=== PATIENT | male | born 1950 | race Caucasian/White ===

== ENCOUNTER 2018-12-05 15:06 | Emergency (ER) | payer MEDICARE ==
[~2018-12-05] VITALS: Ht 170.2 cm; Wt 138.0 kg
[~2018-12-05 15:06] MED LIST: ASPI-481 PO; COLC25PO2 MC; DOCU-144 PO; ESOM5SUS PO; LEVE750T70 PO; METO-53 PO; NITR0.4T39 SL; RANEXA; RSV10T PO; SPIR50TA4 PO; TERA10CA3 PO; [UNRECOGNIZED DRUG - CODE] MC; [UNRECOGNIZED DRUG - CODE] MC
[2018-12-05 15:19] VITALS: Ht 170.2 cm; Wt 138.0 kg
[2018-12-05] MEDS ORDERED: LORAZEPAM 2 MG INJ IV STA (15:33)
[2018-12-05] MEDS ORDERED: LABETALOL HCL 20MG INJ IV ONE (16:00)
[2018-12-05 18:03] VITALS: BP 140/80; PULSE 62; RESP 16
--- NOTE | 2018-12-05 18:57 | ERD ---
ER Documentation Chief Complaint Chief Complaint 'seizures' at 2100, 1400. no LOC, 'couldn't control self'. no meds. HPI Patient is a 68-year-old male with coronary disease and hypertension who presents with symptoms of possible seizure. The patient said that at 9 PM last night he was shaking and twitching but was awake for the entire event. He was unable to control it however. It lasted less than 10 minutes. Around 2 PM toda y a similar episode happened. He did bite his tongue. He was unable to speak at that time. He said that both episodes happened while he was trying to do something with his mouth. He said that 2 years ago he had a similar symptom while in the [facility]. Upon review of old medical records this is the patient's first visit to the emergency department. He does not currently have a primary doctor. ROS All systems reviewed and are negative except as per history of present illness. Medications Home Meds Discontinued Reported Medications Sucralfate (Sucralfate) 1,000 Gm Powder, 1 GM MC DAILY 06/17/13 Rosuvastatin Calcium* (Crestor*) 10 Mg Tablet, 10 MG PO DAILY 06/17/13 Terazosin Hcl* (Terazosin Hcl*) 10 Mg Capsule, 5 MG PO DAILY 06/17/13 Metoprolol (Lopressor) 50 Mg Tablet, 50 MG PO BID 06/17/13 [Ranexa] No Conflict Check, 1000 MG BID 06/17/13 Potassium Citrate Monohydrate (Potassium Citrate) 454 Gm Granules, 99 GM MC PRN for GASTROINTESTINAL UPSET 06/17/13 Colchicine (Colchicine) 5 Gm Powder, 0.6 GM MC PRN for NOTE 06/17/13 Nitroglycerin* (Nitrostat*) 0.4 Mg Tab.subl, 0.4 MG SL PRN for ANGINA 06/17/13 Docusate Sodium* (Colace*) 100 Mg Capsule, 100 MG PO DAILY 04/17/13 Spironolactone* (Aldactone*) 50 Mg Tablet, 100 MG PO 04/17/13 Esomeprazole Mag Trihydrate (Nexium Packet) 5 Mg Suspdr.pkt, 40 MG PO DAILY 04/17/13 Aspirin (Baby Aspirin) 81 Mg Tab.chew, 81 MG PO DAILY 04/17/13 Allergies Allergies: Coded Allergies: No Known Allergy (Unverified , 12/05/18) PMhx/Soc History of Surgery: Yes (ANGIOPLASTY X3, HERNIA, BARIATRIC, HYDROCELECTOMY, B CATARACT) Anesthesia Reaction: No Hx Neurological Disorder: No Hx Respiratory Disorders: No Hx Cardiac Disorders: Yes (CAD, [place], PCI,ANGINA, CHF,) Hx Psychiatric Problems: No Hx Miscellaneous Medical Probl: Yes (GOUT, CHRONIC VENOUS STASIS, LE EDEMA) Hx Alcohol Use: No Hx Substance Use: No Hx Tobacco Use: No Smoking Status: Never smoker FmHx Family History: diabetes Physical Exam Vitals Vital Signs Date Temp Pulse Resp B/P (MAP) Pulse Ox O2 O2 Flow FiO2 Time Delivery Rate 12/05/18 98.3 62 16 140/80 100 Room Air 18:03 (100) 12/05/18 64 16 158/72 99 Room Air 15:59 (100) 12/05/18 76 20 180/96 98 Room Air 15:30 (124) 12/05/18 99.2 69 16 212/111 97 15:19 (144) Physical Exam Const: No acute distress Head: Atraumatic Eyes: Normal Conjunctiva ENT: Normal External Ears, Nose and Mouth. Neck: Full range of motion. No meningismus. Resp: Clear to auscultation bilaterally Cardio: Regular rate and rhythm, no murmurs Abd: Soft, non tender, non distended. Normal bowel sounds Skin: No petechiae or rashes Back: No midline or flank tenderness Ext: No cyanosis, or edema Neur: Awake and alert, cranial nerves II through XII intact, strength is 5 out of 5 in all 4 extremities, no slurred speech, no seizure activity Psych: Normal Mood and Affect Result Diagram: 12/05/18 1558 12/05/18 1558 Results 24 hrs Laboratory Tests Test 12/05/18 15:58 White Blood Count 7.7 10^3/ul Red Blood Count 4.85 10^6/ul Hemoglobin 13.0 g/dl Hematocrit 42.3 % Mean Corpuscular Volume 87.2 fl Mean Corpuscular Hemoglobin 26.8 pg Mean Corpuscular Hemoglobin Concent 30.7 g/dl Red Cell Distribution Width 15.7 % Platelet Count 256 10^3/UL Mean Platelet Volume 10.4 fl Immature Granulocytes % 0.300 % Neutrophils % 81.4 % Lymphocytes % 11.0 % Monocytes % 6.2 % Eosinophils % 0.8 % Basophils % 0.3 % Nucleated Red Blood Cells % 0.0 /100WBC Immature Granulocytes # 0.020 10^3/ul Neutrophils # 6.3 10^3/ul Lymphocytes # 0.9 10^3/ul Monocytes # 0.5 10^3/ul Eosinophils # 0.1 10^3/ul Basophils # 0.0 10^3/ul Nucleated Red Blood Cells # 0.0 10^3/ul Sodium Level 140 mmol/L Potassium Level 5.3 mmol/L Chloride Level 108 mmol/L Carbon Dioxide Level 27 mmol/L Anion Gap 5 Blood Urea Nitrogen 18 mg/dl Creatinine 1.21 mg/dl Est Glomerular Filtrat Rate mL/min 60 mL/min Glucose Level 74 mg/dl Calcium Level 9.0 mg/dl Troponin I 0.017 ng/ml Current Medications Medications Dose Sig/Deisi Start Time Status Last (Trade) Ordered Route PRN Stop Time Admin Dose Reason Admin Lorazepam 1 mg ONCE STAT 12/05/18 DC 12/05/18 (Ativan) IV 15:33 12/05/18 16:06 15:34 Labetalol 20 mg ONCE ONCE 12/05/18 DC HCl IV 16:00 12/05/18 (Labetalol) 16:01 Procedures/MDM CT brain read by radiology. Patient is a 68-year-old female who presents with what sounds like complex partial seizure. Laboratory studies were basically normal and CT scan of the brain shows no sign of mass or bleed. At this point I do not believe patient requires admission to the hospital but he will need close outpatient follow-up and likely MRI and EEG as an outpatient. The patient can return for any worsening symptoms. He was given Ativan in the emergency department to prevent further seizure. He will need to follow-up closely with the local clinics and I will give him a list so he can obtain a primary doctor. He will also likely benefit from outpatient neurology follow-up. Departure Diagnosis: Primary Impression: Complex partial seizure Epilepsy type: partial symptomatic Intractability: not intractable Status epilepticus: without status epilepticus Qualified Codes: G40.209 - Localization-related (focal) (partial) symptomatic epilepsy and epileptic syndromes with complex partial seizures, not intractable, without status epilepticus Condition: Fair Patient Instructions: Seizure, New Onset, Unk Cause [Adult] Referrals: COMMUNITY CLINICS YOU HAVE RECEIVED A MEDICAL SCREENING EXAM AND THE RESULTS INDICATE THAT YOU DO NOT HAVE A CONDITION THAT REQUIRES URGENT TREATMENT IN THE EMERGENCY DEPARTMENT. FURTHER EVALUATION AND TREATMENT OF YOUR CONDITION CAN WAIT UNTIL YOU ARE SEEN IN YOUR DOCTORS OFFICE WITHIN THE NEXT 1-2 DAYS. IT IS YOUR RESPONSIBILITY TO MAKE AN APPOINTMENT FOR FOLOW-UP CARE. IF YOU HAVE A PRIMARY DOCTOR --you should call your primary doctor and schedule an appointment IF YOU DO NOT HAVE A PRIMARY DOCTOR YOU CAN CALL OUR PHYSICIAN REFERRAL HOTLINE AT IF YOU CAN NOT AFFORD TO SEE A PHYSICIAN YOU CAN CHOSE FROM THE FOLLOWING [facility] CLINICS [facility] [address] [facility]. [facility] [address] [facility] [facility] [address] [facility] [facility] [address] [facility]. [facility] [address] [facility]. [facility] [address] Additional Instructions: Call your primary care doctor TOMORROW for an appointment during the next 1-2 days.See the doctor sooner or return here if your condition worsens before your appointment time. ALEXANDRE WALKER MD Dec 05, 2018 18:57
== END 2018-12-05 18:11 | disposition home or self-care (01) ==
LOC: E/R 15:06
DX: G40.209 Localization-related (focal) (partial) symptomatic epilepsy and epileptic syndromes with complex partial seizures, not intractable, without status epilepticus (principal); I25.10 Atherosclerotic heart disease of native coronary artery without angina pectoris; I11.0 Hypertensive heart disease with heart failure; I50.9 Heart failure, unspecified; I25.2 Old myocardial infarction; Z79.82 Long term (current) use of aspirin
CPT/HCPCS: 36415; 70450; 80048; 84484; 85025; 93005; 96374; 99285; J2060

== ENCOUNTER 2018-12-09 21:01 | Emergency (ER) | payer MEDICARE ==
[~2018-12-09] VITALS: Ht 170.2 cm; Wt 130.0 kg
[~2018-12-09 21:01] MED LIST changes: -ASPI-481 PO; -COLC25PO2 MC; -DOCU-144 PO; -ESOM5SUS PO; -METO-53 PO; -NITR0.4T39 SL; -RANEXA; -RSV10T PO; -SPIR50TA4 PO; -TERA10CA3 PO; -[UNRECOGNIZED DRUG - CODE] MC; -[UNRECOGNIZED DRUG - CODE] MC
[2018-12-09 21:07] VITALS: Ht 170.2 cm; Wt 130.0 kg
[2018-12-09] MEDS ORDERED: LEVETIRACETAM 500 MG TAB PO ONE (21:30)
--- NOTE | 2018-12-09 22:16 | ERD ---
ER Documentation Chief Complaint Chief Complaint STATES HAD SX X3 TODAY; LAST SX @2014; NOT POSTICTAL HPI This is a 68-year-old man complaining of his third seizure in the last 5 days, he was seen and evaluated few days ago and a work-up was unremarkable including CT imaging of the brain. He was discharged to follow-up with his PMD and he saw his nurse practitioner who stated she would arrange neurology consultation as an outpatient (although that will take about 2 weeks) and recommended he be more compliant with his antihypertensive therapy. Patient does have a long history of poorly controlled hypertension and obesity. Patient states today for a few minutes he was twitching and shaking and could not speak although he did not lose motor tone during the episode. He did bite his tongue and after this episode he felt a bit sleepy. He denies headache or blurry vision, no recent fevers or chills, no vomiting or diarrhea, no loss of bowel or bladder control. ROS All systems reviewed and are negative except as per history of present illness. Medications Home Meds Discontinued Reported Medications Sucralfate (Sucralfate) 1,000 Gm Powder, 1 GM MC DAILY 06/17/13 Rosuvastatin Calcium* (Crestor*) 10 Mg Tablet, 10 MG PO DAILY 06/17/13 Terazosin Hcl* (Terazosin Hcl*) 10 Mg Capsule, 5 MG PO DAILY 06/17/13 Metoprolol (Lopressor) 50 Mg Tablet, 50 MG PO BID 06/17/13 [Ranexa] No Conflict Check, 1000 MG BID 06/17/13 Potassium Citrate Monohydrate (Potassium Citrate) 454 Gm Granules, 99 GM MC PRN for GASTROINTESTINAL UPSET 06/17/13 Colchicine (Colchicine) 5 Gm Powder, 0.6 GM MC PRN for NOTE 06/17/13 Nitroglycerin* (Nitrostat*) 0.4 Mg Tab.subl, 0.4 MG SL PRN for ANGINA 06/17/13 Docusate Sodium* (Colace*) 100 Mg Capsule, 100 MG PO DAILY 04/17/13 Spironolactone* (Aldactone*) 50 Mg Tablet, 100 MG PO 04/17/13 Esomeprazole Mag Trihydrate (Nexium Packet) 5 Mg Suspdr.pkt, 40 MG PO DAILY 04/17/13 Aspirin (Baby Aspirin) 81 Mg Tab.chew, 81 MG PO DAILY 04/17/13 Allergies Allergies: Coded Allergies: No Known Allergy (Unverified , 12/05/18) PMhx/Soc CAD, obesity, chronic stasis dermatitis, hypertension History of Surgery: Yes (ANGIOPLASTY X3, HERNIA, BARIATRIC, HYDROCELECTOMY, B CATARACT) Anesthesia Reaction: No Hx Neurological Disorder: No Hx Respiratory Disorders: No Hx Cardiac Disorders: Yes (CAD, [place], PCI,ANGINA, CHF,) Hx Psychiatric Problems: No Hx Miscellaneous Medical Probl: Yes (GOUT, CHRONIC VENOUS STASIS, LE EDEMA) Hx Alcohol Use: No Hx Substance Use: No Hx Tobacco Use: No Smoking Status: Never smoker FmHx Family History: diabetes Physical Exam Vitals Vital Signs Date Temp Pulse Resp B/P (MAP) Pulse Ox O2 O2 Flow FiO2 Time Delivery Rate 12/09/18 58 19 185/97 96 22:04 (126) 12/09/18 97.1 69 19 253/123 98 21:07 (166) Physical Exam Const: No acute distress, well-developed well-nourished, afebrile HEENT: Soft tissue contusion to the lateral tongue, no loose dentition, no cervical spine tenderness or deformity, pupils equal round reactive to light, pink conjunctive a Resp: Clear to auscultation bilaterally Cardio: Regular rate and rhythm, no murmurs Ext: No cyanosis, 2+ pitting edema in the lower extremities bilaterally, calves are symmetrical, distal pulses equal bilateral Neur: Awake and alert x3, no focal deficits or facial asymmetry, pupils equal round reactive to light Psych: Normal Mood and Affect Results 24 hrs Current Medications Medications Dose Sig/Deisi Start Time Status Last (Trade) Ordered Route PRN Stop Time Admin Dose Reason Admin 1,000 mg ONCE ONCE 12/09/18 DC 12/09/18 Levetiracetam PO 21:30 22:02 (Keppra) 12/09/18 21:31 Procedures/MDM Patient had a recent full work-up and is not scheduled to see a neurologist for another 2 to 3 weeks so I will start him on anti-epileptic therapy. I administered 1 g of Keppra p.o. here in the ER and for hypertension patient received clonidine 0.1 mg p.o. x1 I reviewed the patient's recent I reviewed the patient's recent work-ups and imaging studies Differential diagnoses considered, included but not limited to acute coronary syndrome, pulmonary embolism, aortic dissection, abdominal aortic aneurysm, sepsis, stroke, meningitis, encephalitis, pneumonia, appendicitis, cholecystitis, bowel obstruction, pyelonephritis, nephrolithiasis, cystitis, as well as metabolic, hematologic, and electrolyte abnormalities. As well as abscess, cellulitis, fractures, and dislocations. Patient feels much better at this time, and vital signs are normal, symptoms have improved. I did give strict instructions to return to the ED if symptoms continue or worsen, patient will otherwise follow-up with primary care physician. Patient understood instructions and agreed to plan. Disclaimer: Inadvertent spelling and grammatical errors are likely due to EHR/dictation software use and do not reflect on the overall quality of patient care. Also, please note that the electronic time recorded on this note does not necessarily reflect the actual time of the patient encounter. Departure Diagnosis: Primary Impression: Complex partial seizure Epilepsy type: partial symptomatic Intractability: not intractable Status epilepticus: without status epilepticus Qualified Codes: G40.209 - Localization-related (focal) (partial) symptomatic epilepsy and epileptic syndromes with complex partial seizures, not intractable, without status epilepticus Additional Impression: Hypertension Hypertension type: essential hypertension Qualified Codes: I10 - Essential (primary) hypertension Condition: Good ASHWINI AVENDANO MD Dec 09, 2018 22:16
[2018-12-09 22:39] VITALS: BP 173/103; PULSE 57; RESP 18
== END 2018-12-09 23:34 | disposition home or self-care (01) ==
LOC: E/R 21:01 → EDUNIT# 21:01 → E/R 23:34
DX: G40.209 Localization-related (focal) (partial) symptomatic epilepsy and epileptic syndromes with complex partial seizures, not intractable, without status epilepticus (principal); I25.10 Atherosclerotic heart disease of native coronary artery without angina pectoris; I50.9 Heart failure, unspecified; I11.0 Hypertensive heart disease with heart failure; I25.2 Old myocardial infarction; E66.9 Obesity, unspecified; Z98.61 Coronary angioplasty status; Z79.82 Long term (current) use of aspirin
CPT/HCPCS: 99283

== ENCOUNTER 2018-12-10 13:22 | Emergency (ER) | payer MEDICARE ==
[~2018-12-10] VITALS: Ht 170.2 cm; Wt 136.4 kg
[2018-12-10 13:25] VITALS: Ht 170.2 cm; Wt 136.4 kg
--- NOTE | 2018-12-10 15:46 | ERD ---
ER Documentation Chief Complaint Chief Complaint WITNESSED SEIZURE AT HOME, PT AOX4 AT THIS TIME HPI The patient is a 68-year-old male, presenting to the ER because of possible seizure at home. He was showing his friend how to provoke a seizure by biting on his teeth. He then had a seizure according to the family friend who was not here to confirm. He does not have any postictal period, was seen in the ER for seizure on December 05 and again yesterday and had extensive studies including a negative brain CT. He was discharged with Keppra 750 mg twice daily however he did not start until 2 AM this morning. He denies syncope, neck pain, chest pain, dyspnea, abdominal pain, vomiting, dysuria, diarrhea, incontinence. He was recently diagnosed with seizure, is awaiting to see neurologist Past medical history: Dyslipidemia, hypertension, CAD, history of CHF, chronic venous stasis Past surgical history: cardiac PCI ROS All systems reviewed and are negative except as per history of present illness. Medications Home Meds Active Scripts Levetiracetam* (Keppra*) 750 Mg Tablet, 750 MG PO BID, #60 TAB Prov:ASHWINI AVENDANO MD 12/09/18 Discontinued Reported Medications Sucralfate (Sucralfate) 1,000 Gm Powder, 1 GM MC DAILY 06/17/13 Rosuvastatin Calcium* (Crestor*) 10 Mg Tablet, 10 MG PO DAILY 06/17/13 Terazosin Hcl* (Terazosin Hcl*) 10 Mg Capsule, 5 MG PO DAILY 06/17/13 Metoprolol (Lopressor) 50 Mg Tablet, 50 MG PO BID 06/17/13 [Ranexa] No Conflict Check, 1000 MG BID 06/17/13 Potassium Citrate Monohydrate (Potassium Citrate) 454 Gm Granules, 99 GM MC PRN for GASTROINTESTINAL UPSET 06/17/13 Colchicine (Colchicine) 5 Gm Powder, 0.6 GM MC PRN for NOTE 06/17/13 Nitroglycerin* (Nitrostat*) 0.4 Mg Tab.subl, 0.4 MG SL PRN for ANGINA 06/17/13 Docusate Sodium* (Colace*) 100 Mg Capsule, 100 MG PO DAILY 04/17/13 Spironolactone* (Aldactone*) 50 Mg Tablet, 100 MG PO 04/17/13 Esomeprazole Mag Trihydrate (Nexium Packet) 5 Mg Suspdr.pkt, 40 MG PO DAILY 04/17/13 Aspirin (Baby Aspirin) 81 Mg Tab.chew, 81 MG PO DAILY 04/17/13 Allergies Allergies: Coded Allergies: No Known Allergy (Unverified , 12/10/18) PMhx/Soc History of Surgery: Yes (ANGIOPLASTY X3, HERNIA, BARIATRIC, HYDROCELECTOMY, B CATARACT) Anesthesia Reaction: No Hx Neurological Disorder: No Hx Respiratory Disorders: No Hx Cardiac Disorders: Yes (CAD, [place], PCI,ANGINA, CHF,) Hx Psychiatric Problems: No Hx Miscellaneous Medical Probl: Yes (GOUT, CHRONIC VENOUS STASIS, LE EDEMA) Hx Alcohol Use: No Hx Substance Use: No Hx Tobacco Use: No Physical Exam Vitals Vital Signs Date Temp Pulse Resp B/P (MAP) Pulse Ox O2 O2 Flow FiO2 Time Delivery Rate 12/10/18 98.3 51 20 154/103 99 Room Air 17:11 (120) 12/10/18 50 18 156/91 98 Room Air 16:29 (112) 12/10/18 99.2 68 18 190/82 97 13:25 (118) Physical Exam Const: No acute distress. Head: Atraumatic. Eyes: Normal Conjunctiva. ENT: Normal External Ears, Nose and Mouth. Neck: Full range of motion. No meningismus. Resp: Clear to auscultation bilaterally. Cardio: Regular rate and rhythm. Abd: Soft, non distended, normal bowel sounds, non tender. Skin: No petechiae or rashes. Back: No midline or flank tenderness. Ext: No cyanosis, or edema. Neur: Awake and alert. No focal deficit Psych: Normal Mood and Affect. Results 24 hrs Current Medications Medications Dose Sig/Deisi Start Time Status Last (Trade) Ordered Route PRN Stop Time Admin Dose Reason Admin 100 ml @ ONCE ONCE 12/10/18 DC 12/10/18 Levetiracetam 400 mls/hr IVPB 16:30 16:39 12/10/18 16:44 Procedures/MDM MEDICAL MAKING DECISION: The patient is a 68-year-old male, presenting with possible recurrent seizure, treated with Keppra 1 g milligram IV, is stable for outpatient follow-up The differential diagnoses considered include but are not limited to recurrent seizure due to medical noncompliance, anxiety attack, panic attack, electrolyte imbalance Departure Diagnosis: Primary Impression: Recurrent seizures Condition: Good Comments I discussed the findings with the patient. I advised the patient to follow-up with his neurologist in about 1-2 days, sooner if needed and return if any concern. Disclaimer: Inadvertent spelling and grammatical errors are likely due to EHR/dictation software use and do not reflect on the overall quality of patient care. Also, please note that the electronic time recorded on this note does not necessarily reflect the actual time of the patient encounter. URSULA DE LOS SANTOS MD Dec 10, 2018 15:46
[2018-12-10] MEDS ORDERED: LEVETIRACETAM 1000 MG (PMX) 100 ML IVPB ONE (16:30)
[2018-12-10 17:11] VITALS: BP 154/103; PULSE 51; RESP 20
== END 2018-12-10 17:40 | disposition home or self-care (01) ==
LOC: E/R 13:22
DX: G40.909 Epilepsy, unspecified, not intractable, without status epilepticus (principal); I11.0 Hypertensive heart disease with heart failure; I50.9 Heart failure, unspecified; I25.10 Atherosclerotic heart disease of native coronary artery without angina pectoris; I25.2 Old myocardial infarction; R40.2142 Coma scale, eyes open, spontaneous, at arrival to emergency department; R40.2362 Coma scale, best motor response, obeys commands, at arrival to emergency department; R40.2252 Coma scale, best verbal response, oriented, at arrival to emergency department; Z79.82 Long term (current) use of aspirin
CPT/HCPCS: 96365; 99284; J1953